=== PATIENT | female | born 1970 | race African-American/Black ===

== ENCOUNTER 2017-08-06 05:08 | Emergency (ER) | payer OTHER ==
[~2017-08-06] VITALS: Ht 154.9 cm; Wt 68.0 kg
[~2017-08-06 05:08] MED LIST: ANTIVERT25 MG PO; BREO ELLIPTA 11 EACH IH; CIPROFLOXACIN500 M1 PO; CIPROFLOXACIN500 M3 PO; FLOMAX PO; FLOMAX0.4 MG PO; HYDROCHLOROTH12.5 M2 PO; HYDROCHLOROTHIA25 M1 PO; LISINOPRIL20 MG PO; MECLIZINE HCL25 M1 PO; NAPROSYN500 MG PO; NORCO 5-325 TA1 EACH PO; NORFLEX100 MG PO; PERCOCET 5-3251 EACH PO; PHENERGAN 25 MG25 M1 PO; PREDNISONE 10 M10 M1 PO; PROVENTIL IH; PYRIDIUM200 MG PO; QUINAPRIL 20 MG20 MG PO; TAMSULOSIN HCL0.4 M1 PO; ZESTORETIC 20-1 EAC3 PO; ZESTORETIC 20-1 EACH PO; ZESTRIL20 MG PO; ZOFRAN 4 MG ORAL4 M1 DIS; ZOFRAN ODT4 MG PO
[2017-08-06] MEDS ORDERED: OXYCODONE HCL 55 MG PO (06:37)
== END 2017-08-06 06:53 | disposition home or self-care (01) ==
LOC: ER 05:08
DX: S02.609A Fracture of mandible, unspecified, initial encounter for closed fracture (principal); Y04.8XXA Assault by other bodily force, initial encounter; Y93.89 Activity, other specified; Y92.89 Other specified places as the place of occurrence of the external cause; Y99.8 Other external cause status; I10 Essential (primary) hypertension; J45.909 Unspecified asthma, uncomplicated; Z87.442 Personal history of urinary calculi

== ENCOUNTER 2017-08-09 19:18 | Emergency (ER) | payer OTHER ==
[~2017-08-09] VITALS: Ht 154.9 cm; Wt 68.0 kg
[~2017-08-09 19:18] MED LIST changes: +OXYCODONE HCL 55 MG PO
[2017-08-09] MEDS ORDERED: CYCLOGYL2 M1 OPHTHALMIC (21:59)
[2017-08-09] MEDS ORDERED: PRED FORTE 1% EY5 M1 OPHTHALMIC (21:59)
== END 2017-08-09 22:05 | disposition home or self-care (01) ==
LOC: ER 19:18
DX: H20.9 Unspecified iridocyclitis (principal); I10 Essential (primary) hypertension; J45.909 Unspecified asthma, uncomplicated; Z87.442 Personal history of urinary calculi

== ENCOUNTER 2017-08-17 14:07 | Emergency (ER) | payer OTHER ==
[~2017-08-17] VITALS: Ht 154.9 cm; Wt 68.0 kg
[~2017-08-17 14:07] MED LIST changes: +CYCLOGYL2 M1 OPHTHALMIC; +PRED FORTE 1% EY5 M1 OPHTHALMIC
[2017-08-17] MEDS ORDERED: OXYCODONE HCL 55 MG PO (14:40)
== END 2017-08-17 14:45 | disposition home or self-care (01) ==
LOC: ER 14:07
DX: Z76.0 Encounter for issue of repeat prescription (principal); I10 Essential (primary) hypertension; J45.909 Unspecified asthma, uncomplicated

== ENCOUNTER 2018-04-28 11:53 | Emergency (ER) | payer OTHER ==
[~2018-04-28] VITALS: Ht 154.9 cm; Wt 65.8 kg
[2018-04-28] MEDS ORDERED: HYDROCHLOROTHIA25 M1 PO (11:56)
[2018-04-28] MEDS ORDERED: PENICILLIN V P500 MG PO (12:31)
[2018-04-28] MEDS ORDERED: TRAMADOL 50 MG50 MG PO (12:31)
[2018-04-28] MEDS ORDERED: IBUPROFEN 400400 M2 PO (12:31)
[2018-04-28 13:52] VITALS: BP 184/114
== END 2018-04-28 13:10 | disposition home or self-care (01) ==
LOC: ER 11:53
DX: K04.01 Reversible pulpitis (principal); I10 Essential (primary) hypertension; J45.909 Unspecified asthma, uncomplicated

== ENCOUNTER 2018-06-24 19:46 | Emergency (ER) | payer OTHER ==
[~2018-06-24] VITALS: Ht 154.9 cm; Wt 70.3 kg
[~2018-06-24 19:46] MED LIST changes: +IBUPROFEN 400400 M2 PO; +PENICILLIN V P500 MG PO; +TRAMADOL 50 MG50 MG PO
[2018-06-24] MEDS ORDERED: AMOXICILLIN 50500 MG PO (20:04)
[2018-06-24] MEDS ORDERED: NORCO 7.5-3251 EACH PO (20:04)
[2018-06-24 21:12] VITALS: BP 176/103
== END 2018-06-24 21:14 | disposition home or self-care (01) ==
LOC: ER 19:46
DX: S02.5XXA Fracture of tooth (traumatic), initial encounter for closed fracture (principal); I10 Essential (primary) hypertension; J45.909 Unspecified asthma, uncomplicated; Z87.442 Personal history of urinary calculi; X58.XXXA Exposure to other specified factors, initial encounter; Y92.89 Other specified places as the place of occurrence of the external cause; Y93.89 Activity, other specified; Y99.8 Other external cause status

== ENCOUNTER 2018-06-26 16:56 | Emergency (ER) | payer OTHER ==
[~2018-06-26] VITALS: Ht 154.9 cm; Wt 70.3 kg
[~2018-06-26 16:56] MED LIST changes: +AMOXICILLIN 50500 MG PO; +NORCO 7.5-3251 EACH PO
[2018-06-26 17:47] VITALS: BP 184/103
== END 2018-06-26 17:48 | disposition home or self-care (01) ==
LOC: ER 16:56
DX: K08.89 Other specified disorders of teeth and supporting structures (principal); R68.84 Jaw pain; I10 Essential (primary) hypertension; J45.909 Unspecified asthma, uncomplicated

== ENCOUNTER 2018-12-03 13:33 | Emergency (ER) | payer OTHER ==
[~2018-12-03] VITALS: Ht 157.5 cm; Wt 72.6 kg
[2018-12-03] MEDS ORDERED: ZESTORETIC 20-1 EAC3 PO (13:43)
[2018-12-03] MEDS ORDERED: NAPROSYN500 MG PO (14:49)
[2018-12-03] MEDS ORDERED: MOBIC7.5 MG PO (14:50)
[2018-12-03] MEDS ORDERED: FLEXERIL PO (14:51)
[2018-12-03] MEDS ORDERED: BUTALB-APAP-CA1 EACH PO (15:13)
[2018-12-03 15:25] VITALS: BP 141/83
== END 2018-12-03 15:31 | disposition home or self-care (01) ==
LOC: ER 13:33
DX: F41.8 Other specified anxiety disorders (principal); R51 Headache; I10 Essential (primary) hypertension; J45.909 Unspecified asthma, uncomplicated; Z98.51 Tubal ligation status

== ENCOUNTER 2018-12-18 00:10 | Emergency (ER) | payer OTHER ==
[~2018-12-18] VITALS: Ht 154.9 cm; Wt 72.6 kg
[~2018-12-18 00:10] MED LIST changes: +BUTALB-APAP-CA1 EACH PO; +FLEXERIL PO; +MOBIC7.5 MG PO
[2018-12-18] MEDS ORDERED: PREDNISONE 20 M20 MG PO (00:27)
[2018-12-18] MEDS ORDERED: IBUPROFEN 600600 M1 PO (00:27)
[2018-12-18] MEDS ORDERED: HYDROCHLOROTHIA25 M2 PO (00:28)
[2018-12-18] MEDS ORDERED: LISINOPRIL20 MG PO (00:28)
[2018-12-18 02:34] VITALS: BP 125/72
[2018-12-18] MEDS ORDERED: COMPAZINE10 MG PO (03:09)
== END 2018-12-18 03:20 | disposition home or self-care (01) ==
LOC: ER 00:10
DX: I10 Essential (primary) hypertension (principal); R51 Headache; J45.909 Unspecified asthma, uncomplicated; Z87.442 Personal history of urinary calculi

== ENCOUNTER 2019-06-14 10:16 | Emergency (ER) | payer OTHER ==
[~2019-06-14] VITALS: Ht 154.9 cm; Wt 74.8 kg
[~2019-06-14 10:16] MED LIST changes: +COMPAZINE10 MG PO; +HYDROCHLOROTHIA25 M2 PO; +IBUPROFEN 600600 M1 PO; +PREDNISONE 20 M20 MG PO
[2019-06-14] MEDS ORDERED: NAPROSYN500 MG PO (12:08)
[2019-06-14 12:53] VITALS: BP 126/82
== END 2019-06-14 12:53 | disposition home or self-care (01) ==
LOC: ER 10:16
DX: S93.691A Other sprain of right foot, initial encounter (principal); I10 Essential (primary) hypertension; J45.909 Unspecified asthma, uncomplicated; Z98.51 Tubal ligation status; Z87.442 Personal history of urinary calculi; W18.39XA Other fall on same level, initial encounter; Y93.K1 Activity, walking an animal; Y92.89 Other specified places as the place of occurrence of the external cause; Y99.8 Other external cause status

== ENCOUNTER 2020-03-29 21:02 | Emergency (ER) | payer OTHER ==
[~2020-03-29] VITALS: Ht 154.9 cm; Wt 74.8 kg
[2020-03-29] MEDS ORDERED: ZESTRIL40 MG PO (21:16)
[2020-03-29] MEDS ORDERED: NORFLEX100 MG PO (22:36)
[2020-03-29] MEDS ORDERED: NAPROSYN500 MG PO (22:36)
[2020-03-29] MEDS ORDERED: TRAMADOL 50 MG50 MG PO (22:36)
[2020-03-29 23:01] VITALS: BP 154/91
== END 2020-03-29 23:05 | disposition home or self-care (01) ==
LOC: ER 21:02
DX: M43.6 Torticollis (principal); M62.830 Muscle spasm of back; I10 Essential (primary) hypertension; J45.909 Unspecified asthma, uncomplicated; Z98.51 Tubal ligation status; Z87.442 Personal history of urinary calculi

== ENCOUNTER 2020-05-11 16:27 | Inpatient (IN) | payer MEDICAID ==
[~2020-05-11] VITALS: Ht 157.5 cm; Wt 79.8 kg
[~2020-05-11 16:27] MED LIST changes: +ZESTRIL40 MG PO
[2020-05-11 16:28] VITALS: BP 180/105
[2020-05-11] MEDS ORDERED: PROAIR HFA8.5 GM INH (16:57)
[2020-05-11 18:03] LABS: HEMATOCRIT 39.7 % (37.0-47.0); HEMOGLOBIN 13.5 gm/dL (12.0-15.0); MCH 31.8 pg (26.0-34.0); MCV 93.6 fL (80.0-100.0); PLATELET COUNT 296 thou/uL (150-400); RBC 4.24 mil/uL (4.20-5.00); RDW 13.3 % (10.5-14.5); WBC 10.2 thou/uL (4.0-11.0)
[2020-05-11 18:11] LABS: ANION GAP 9 mmol/L (7-16); BUN 10 mg/dL (7-18); CALCIUM 9.4 mg/dL (8.5-10.1); CHLORIDE 108 mmol/L (98-107); CO2 27 mmol/L (21-32); CREATININE 0.8 mg/dL (0.6-1.0); GLUCOSE 122 mg/dL (74-106); POTASSIUM 3.5 mmol/L (3.5-5.1); SODIUM 144 mmol/L (136-145)
[2020-05-11 18:21] LABS: ALBUMIN 4.1 g/dL (3.4-5.0); SGOT 18 U/L (15-37); SGPT 18 U/L (30-65); TOTAL BILIRUBIN 0.2 mg/dL (0.2-1.0); TOTAL PROTEIN 7.6 g/dL (6.4-8.2); TROPONIN-I <0.06 ng/mL (<0.06)
[2020-05-11 18:42] LABS: ABSOLUTE NEUTROPHILS 8.3 thou/uL (1.4-8.2)
[2020-05-11 23:56] VITALS: BP 187/101
[2020-05-12] VITALS (10 sets, daily range): BP systolic 151–203; BP diastolic 81–125
--- NOTE | 2020-05-12 05:40 | NUR ---
RECIEVED PT FROM ED, UPON ARRIVAL TO UNIT TO CALM COOPERATIVE, PLACED ON PROGRESSIVE DIE MAKER SHOWS [address] 109 BP ELEVATED, DENIES PAIN, DICUSSED PLAN OF CARE, VERBALIZED UNDERSTANDING AND AGREEABLE . PO MEDICATION GIVEN FOR ELEVATED BP , BP DECREASED DOWN TO 151/81 WILL CONINTUE TO MONITOR.
[2020-05-12 06:48] LABS: HEMATOCRIT 38.8 % (37.0-47.0); HEMOGLOBIN 12.8 gm/dL (12.0-15.0); MCH 31.5 pg (26.0-34.0); MCHC 33.1 g/dL (28.0-37.0); MCV 95.1 fL (80.0-100.0); RBC 4.08 mil/uL (4.20-5.00); RDW 14.2 % (10.5-14.5); WBC 10.7 thou/uL (4.0-11.0)
[2020-05-12 07:03] LABS: CALCIUM 9.2 mg/dL (8.5-10.1); CREATININE 0.8 mg/dL (0.6-1.0); MAGNESIUM 1.8 mg/dL (1.8-2.4); POTASSIUM 4.1 mmol/L (3.5-5.1)
--- NOTE | 2020-05-12 07:42 | EKG ---
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: 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 : 1970 Requested By: Camden Capps Order Number: [id number] MD: Ferny Hickman Measurements Intervals [place] Rate: 137 P: 0 [place]: QRS: -52 QRSD: 131 T: 88 QT: 393 QTc: 594 Interpretive Statements Sinus tachycardia Left bundle branch block Compared to ECG 07/15/2011 05:19:18 Left bundle-branch block now present Sinus rhythm no longer present Electronically Signed On 05-12-2020 7:42:11 CDT by Ferny Hickman [email or web address] <ELECTRONICALLY SIGNED> By: Ferny Hickman MD, FACC 05/12/20 0742 1755 175 Ferny Hickman MD, [facility] /EPI
--- NOTE | 2020-05-12 15:58 | NUR ---
INITIAL ASSESSMENT: LEW reviewed chart and spoke with nursing and attending physician. Pt was admitted from home due to pneumonia. Pt placed in Enhanced Isolation to r/o COVID-19. Pt's test is negative. Enhanced Isolation precautions have been discontinued. Pt with hx of asthma. Pt is did have a fever and is on IV steroids. Pt's BP elevated. Pt is not requiring O2. LEW spoke with pt via phone. Introduced role of SW. Pt is alert/orientated x 4 and reports she lives at home with family. Prior to admission, pt was independent with ADLs. No use of DME. 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 Pt states she goes to [facility] for primary care. Pt does not have health insurance and reports that Med Assist was in her room earlier today to assist with financial application. Pt states she has an inhaler at home, but would like a nebulizer for breathing treatments. Pt is currently on Albuterol breathing treatments every 4 hours. LEW contacted Director of Case Mgmt who approved vouching for nebulizer and meds. LEW contacted [facility] liaison, who states they are able to provide the nebulizer for $100. They are not able to provide the medication. LEW contacted [facility] to see if they are able to provide both the nebulizer and medication. LEW is following to assist as needed with discharge planning.
--- NOTE | 2020-05-12 18:11 | NUR ---
PT ARRIVED TO UNIT FROM 3W AT APPROX 1730 BY 3W NURSING STAFF. PT ALERT AND ORIENTED. BP REMAINS HIGH, PT RELUCTANT IN TAKING BLOOD PRESSURE MEDS DUE TO SIDE EFFECTS THAT PATIENT SEARCHED ON GOOGLE. NURSE TELLS PT PHYSICIAN CAN BE CONTACTED FOR ADDITIONAL MEDS TO HELP WITH BP. PT FURTHER EDUCATED ON IMPORTANCE OF MANAGED BP. DENIES SOB. PT CURRENTLY SITTING UP IN CHAIR DENYING OF NEEDS. WILL CONT TO MONITOR .WILL PASS ON REPORT TO BELLE RN.
[2020-05-13 05:00] VITALS: BP 138/82
--- NOTE | 2020-05-13 06:34 | NUR ---
PATIENT IS PROGRESSING IN HER CARE PLAN. VITAL SIGNS STABLE WITH PATIENT HAVING NO COMPLAINTS OF PAIN OR NAUSEA. FULLY ORIENTED, PATIENT IS ABLE TO CALL APPROPRIATELY FOR NEEDS AND CAN FULLY PARTICIPATE IN CARE. BREATHING STABLE ON ROOM AIR EVIDENCED BY ASSESSMENTS AND SPOT OXYGENATION CHECKS. UP AD MARLENA THROUGHOUT SHIFT INCIDENT FREE. PATIENT IS ANXIOUS FOR POTENTIAL DISCHARGE TODAY. CONTINUE PLAN OF CARE.
[2020-05-13 08:53] VITALS: BP 179/105
[2020-05-13 12:30] VITALS: BP 179/91
[2020-05-13 14:22] VITALS: BP 147/85
[2020-05-13] MEDS ORDERED: NORVASC10 MG PO (14:24)
[2020-05-13] MEDS ORDERED: PREDNISONE 10 M10 MG PO (14:24)
[2020-05-13] MEDS ORDERED: ALBUTEROL2.5 MG/0.1 INH (14:36)
[2020-05-13 14:48] VITALS: BP 147/85
[2020-05-13] MEDS ORDERED: WORK EXCUSE (15:59)
--- NOTE | 2020-05-13 16:35 | NUR ---
ASSUMED CARE AT CHANGE OF SHIFT. ALERT X4 FROM HOME. SOB MANAGED WITH BREATHING TREATMENTS. PT'S BP ELEVATED REFUSED SCHEDULED HYDRALAZINE VOICED ADVERSE REACTIONS. DR MATA NOTIFIED NEW ORDERS PLACED. BP ARE WITHIN NORMAL LIMITS AND PT DC HOME WITH SELF CARE. MEDICATIONS AND NEBULIZER PROVIDED. ALL BELONINGS SENT WITH PATIENT. REVIEWED DC PAPER WORK AND EDCUATED TO FOLLLOW UP WITH PULMONARY PHYSICIAN AND PCP.
--- NOTE | 2020-05-13 17:16 | NUR ---
Patient to ar home. Vouched for nebulizer machine and medications. Medication cost $41.48. Gave information for health clinics but patient reports she is established with [facility] clinic currently. No further needs
== END 2020-05-13 17:41 | disposition home or self-care (01) | DRG 194 ==
LOC: ER 16:27 → 2N 21:05 → EROBS 21:05 → 3W 05-12 00:13 → 2N 05-12 17:40
PROVIDERS: Emergency Medicine; Nurse Practitioner Family; ADMIT Internal Medicine; ATTEND Internal Medicine
DX: J18.9 Pneumonia, unspecified organism (principal); J45.901 Unspecified asthma with (acute) exacerbation; J98.11 Atelectasis; I10 Essential (primary) hypertension; Z20.828 Contact with and (suspected) exposure to other viral communicable diseases; Z87.442 Personal history of urinary calculi; Z82.49 Family history of ischemic heart disease and other diseases of the circulatory system; Z79.899 Other long term (current) drug therapy
CPT/HCPCS: 10081

== ENCOUNTER 2020-12-08 05:40 | Emergency (ER) | payer OTHER ==
[~2020-12-08] VITALS: Ht 154.9 cm; Wt 78.9 kg
[~2020-12-08 05:40] MED LIST changes: +ALBUTEROL2.5 MG/0.1 INH; +NORVASC10 MG PO; +PREDNISONE 10 M10 MG PO; +PROAIR HFA8.5 GM INH; +WORK EXCUSE
[2020-12-08 06:03] LABS: URINE BILIRUBIN NEGATIVE (Negative); URINE BLOOD NEGATIVE (Negative); URINE CLARITY CLEAR; URINE COLOR YELLOW; URINE GLUCOSE-RANDOM* NEGATIVE (Negative); URINE KETONES NEGATIVE (Negative); URINE LEUKOCYTES-REFLEX NEGATIVE (Negative); URINE NITRITE-REFLEX NEGATIVE (Negative); URINE PROTEIN (DIPSTICK) NEGATIVE (Negative); URINE SPECIFIC GRAVITY 1.025 (1.005-1.035)
[2020-12-08] MEDS ORDERED: BRIDION200 MG/2 M INH (06:16)
[2020-12-08 06:22] LABS: ABSOLUTE NEUTROPHILS 6.6 thou/uL (1.4-8.2); BASOPHILS 0.8 % (0.0-2.0); EOSINOPHILS 1.4 % (0.0-3.0); HEMATOCRIT 42.3 % (37.0-47.0); HEMOGLOBIN 13.6 gm/dL (12.0-15.0); LYMPHOCYTES 26.9 % (24.0-44.0); MCH 30.5 pg (26.0-34.0); MCHC 32.2 g/dL (28.0-37.0); MCV 94.5 fL (80.0-100.0); MONOCYTES 5.9 % (1.0-8.0); PLATELET COUNT 303 thou/uL (150-400); RBC 4.48 mil/uL (4.20-5.00); WBC 10.2 thou/uL (4.0-11.0)
[2020-12-08 06:31] LABS: ANION GAP 7 mmol/L (7-16); BUN 9 mg/dL (7-18); CALCIUM 9.1 mg/dL (8.5-10.1); CHLORIDE 107 mmol/L (98-107); CO2 26 mmol/L (21-32); CREATININE 0.9 mg/dL (0.6-1.0); GLUCOSE 113 mg/dL (74-106); POTASSIUM 3.7 mmol/L (3.5-5.1); SODIUM 140 mmol/L (136-145)
[2020-12-08 06:41] LABS: ALBUMIN 3.5 g/dL (3.4-5.0); SGOT 10 U/L (15-37); SGPT 19 U/L (14-59); TOTAL BILIRUBIN 0.4 mg/dL (0.2-1.0); TOTAL PROTEIN 6.8 g/dL (6.4-8.2); TROPONIN-I <0.06 ng/mL (<0.06)
--- NOTE | 2020-12-08 06:42 | EKG ---
[place] [address] [facility] [place] [address] ELECTROCARDIOGRAM REPORT Name: AVE GEORGE [id number] Admission: 12/08/20 Attend Phys: Discharge: Date of : 68 Report #: [id number] [facility] ED Test Date: 2020-12-08 Test Time: 06:02:26 Pat Name: AVE GEORGE Department: Room: Gender: F Strategic Planning Consultant: tremayne : 1970 Requested By: Camden Capps Order Number: [id number] MD: Ferny Hickman Measurements Intervals [place] Rate: 74 P: 41 NM: 175 QRS: -46 QRSD: 138 T: 59 QT: 419 QTc: 465 Interpretive Statements Sinus rhythm Left bundle branch block Compared to ECG 05/11/2020 17:55:52 Sinus tachycardia no longer present Electronically Signed On 12-08-2020 6:42:50 CDT by Ferny Hickman [email or web address] <ELECTRONICALLY SIGNED> By: Ferny Hickman MD, [facility] 12/08/20 0642 0602 1 Ferny Hickman MD, FACC /EPI
[2020-12-08 10:30] VITALS: BP 172/101
== END 2020-12-08 10:31 | disposition still patient (30) ==
LOC: ER 05:40
PROVIDERS: Emergency Medicine
DX: R07.9 Chest pain, unspecified (principal); I10 Essential (primary) hypertension; J44.9 Chronic obstructive pulmonary disease, unspecified; Z79.899 Other long term (current) drug therapy

== ENCOUNTER 2021-05-19 03:10 | Emergency (ER) | payer OTHER ==
[~2021-05-19] VITALS: Ht 154.9 cm; Wt 70.3 kg
[~2021-05-19 03:10] MED LIST changes: +BRIDION200 MG/2 M INH
[2021-05-19 03:47] LABS: ABSOLUTE NEUTROPHILS 4.8 thou/uL (1.4-8.2); BASOPHILS 0.6 % (0.0-2.0); EOSINOPHILS 1.5 % (0.0-3.0); HEMATOCRIT 41.4 % (37.0-47.0); HEMOGLOBIN 13.8 gm/dL (12.0-15.0); LYMPHOCYTES 32.3 % (24.0-44.0); MCH 31.5 pg (26.0-34.0); MCHC 33.4 g/dL (28.0-37.0); MCV 94.2 fL (80.0-100.0); MONOCYTES 5.9 % (1.0-8.0); PLATELET COUNT 343 thou/uL (150-400); POLYS 59.7 % (36.0-66.0); RDW 13.8 % (10.5-14.5)
[2021-05-19 04:20] LABS: CALCIUM 9.8 mg/dL (8.5-10.1); CREATININE 0.8 mg/dL (0.6-1.0); POTASSIUM 4.2 mmol/L (3.5-5.1)
[2021-05-19 04:30] LABS: ALBUMIN 3.7 g/dL (3.4-5.0); TOTAL BILIRUBIN 0.2 mg/dL (0.2-1.0); TOTAL PROTEIN 7.4 g/dL (6.4-8.2)
[2021-05-19 05:28] LABS: URINE BILIRUBIN NEGATIVE (Negative); URINE BLOOD NEGATIVE (Negative); URINE CLARITY CLEAR; URINE COLOR YELLOW; URINE GLUCOSE-RANDOM* NEGATIVE (Negative); URINE KETONES NEGATIVE (Negative); URINE LEUKOCYTES-REFLEX NEGATIVE (Negative); URINE NITRITE-REFLEX NEGATIVE (Negative); URINE PROTEIN (DIPSTICK) NEGATIVE (Negative); URINE SPECIFIC GRAVITY >= 1.030 (1.005-1.035); URINE UROBILINOGEN 0.2 E.U./dl (0.2-1.0)
[2021-05-19] MEDS ORDERED: MECLIZINE HCL25 M1 PO (05:28)
[2021-05-19 05:54] VITALS: BP 136/86
--- NOTE | 2021-05-19 06:51 | EKG ---
[address] [address] ELECTROCARDIOGRAM REPORT Name: AVE GEORGE Room #: REG [facility]#: [id number] Admission: 05/19/21 Attend Phys: Discharge: Date of : 68 Report #: [id number] [facility] ED Test Date: 2021-05-19 Test Time: 03:31:51 Pat Name: AVE GEORGE Department: Room: Gender: F Set Designer: josefina : 1970 Requested By: Glynn Varela Order Number: [id number] MD: Ferny Hickman Measurements Intervals [place] Rate: 72 P: 56 [place]: 174 QRS: 96 QRSD: 137 T: -25 QT: 421 QTc: 461 Interpretive Statements Sinus rhythm LBBB Compared to ECG 12/08/2020 06:02:26 No significant change Electronically Signed On 05-19-2021 6:51:13 CDT by Ferny Hickman [email or web address] <ELECTRONICALLY SIGNED> By: Ferny Hickman MD, [facility] 05/19/21 0651 0331 0331 Ferny Hickman MD, FACC /EPI
--- NOTE | 2021-05-20 07:22 | EKG ---
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 Thinner: juan carlos : 1970 Requested By: Glynn Varela Order Number: [id number] MD: Ferny Hickman Measurements Intervals [place] Rate: 67 P: 52 [place]: 188 QRS: -42 QRSD: 137 T: 52 QT: 438 QTc: 463 Interpretive Statements Sinus rhythm Left bundle branch block Compared to ECG 05/19/2021 03:31:51 No significant changes Electronically Signed On 05-20-2021 7:22:02 CDT by Ferny Hickman [email or web address] <ELECTRONICALLY SIGNED> By: Ferny Hickman MD, [facility] 05/20/21 0722 0413 0413 Ferny Hickman MD, FACC /EPI
== END 2021-05-19 05:54 | disposition home or self-care (01) ==
LOC: ER 03:10
PROVIDERS: Emergency Medicine
DX: R42 Dizziness and giddiness (principal); I10 Essential (primary) hypertension; J45.909 Unspecified asthma, uncomplicated; F41.9 Anxiety disorder, unspecified; J44.9 Chronic obstructive pulmonary disease, unspecified; M19.90 Unspecified osteoarthritis, unspecified site; Z87.442 Personal history of urinary calculi; Z98.890 Other specified postprocedural states; Z79.51 Long term (current) use of inhaled steroids; Z79.899 Other long term (current) drug therapy

== ENCOUNTER 2021-06-30 16:13 | Emergency (ER) | payer OTHER ==
[~2021-06-30] VITALS: Ht 154.9 cm; Wt 74.8 kg
[2021-06-30] MEDS ORDERED: HYDROCHLOROTH12.5 M1 PO (16:32)
[2021-06-30] MEDS ORDERED: PRINIVIL40 MG PO (16:32)
[2021-06-30] MEDS ORDERED: TAMSULOSIN HCL0.4 MG PO (16:33)
[2021-06-30] MEDS ORDERED: FAMOTIDINE40 MG PO (16:33)
[2021-06-30 16:55] LABS: ABSOLUTE NEUTROPHILS 4.4 thou/uL (1.4-8.2); BASOPHILS 0.8 % (0.0-2.0); EOSINOPHILS 2.1 % (0.0-3.0); HEMOGLOBIN 13.4 gm/dL (12.0-15.0); LYMPHOCYTES 28.8 % (24.0-44.0); MCH 31.5 pg (26.0-34.0); MCHC 33.4 g/dL (28.0-37.0); MCV 94.3 fL (80.0-100.0); MONOCYTES 5.5 % (1.0-8.0); PLATELET COUNT 314 thou/uL (150-400); POLYS 62.8 % (36.0-66.0); RBC 4.24 mil/uL (4.20-5.00); RDW 13.8 % (10.5-14.5)
[2021-06-30 16:59] LABS: CREATININE 0.8 mg/dL (0.6-1.0); POTASSIUM 4.5 mmol/L (3.5-5.1)
[2021-06-30 17:13] LABS: ALBUMIN 3.6 g/dL (3.4-5.0); TOTAL BILIRUBIN 0.4 mg/dL (0.2-1.0); TOTAL PROTEIN 7.2 g/dL (6.4-8.2)
[2021-06-30 18:02] LABS: AMP/METHAMP Negative (Negative); BARBITURATES Negative (Negative); BENZODIAZEPINES Negative (Negative); COCAINE Negative (Negative); METHADONE Negative (Negative); OPIATES Negative (Negative); PCP Negative (Negative)
[2021-06-30 18:33] VITALS: BP 166/83
--- NOTE | 2021-07-01 10:16 | EKG ---
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: TANYA : 1970 Requested By: Gail Larry Order Number: [id number] MD: Vidal Mcmanus Measurements Intervals [place] Rate: 115 P: 25 [place]: 157 QRS: -57 QRSD: 136 T: 94 QT: 344 QTc: 476 Interpretive Statements Sinus tachycardia Probable left atrial enlargement Left bundle branch block Compared to ECG 05/19/2021 04:13:12 Sinus rhythm no longer present Electronically Signed On 07-01-2021 10:16:14 [employer] by Vidal Mcmanus [email or web address] <ELECTRONICALLY SIGNED> By: Vidal Mcmanus MD 07/01/21 1016 1622 1622 Vidal Mcmanus MD /RUBEN
== END 2021-06-30 18:34 | disposition home or self-care (01) ==
LOC: ER 16:13
PROVIDERS: Physician Assistant
DX: R07.89 Other chest pain (principal); T40.725A Adverse effect of synthetic cannabinoids, initial encounter; I10 Essential (primary) hypertension; F41.9 Anxiety disorder, unspecified; J44.9 Chronic obstructive pulmonary disease, unspecified; M19.90 Unspecified osteoarthritis, unspecified site; E66.01 Morbid (severe) obesity due to excess calories; Z68.31 Body mass index [BMI] 31.0-31.9, adult; Z87.442 Personal history of urinary calculi; Z79.899 Other long term (current) drug therapy; Y92.89 Other specified places as the place of occurrence of the external cause

== ENCOUNTER 2021-07-03 20:30 | Emergency (ER) | payer OTHER ==
[~2021-07-03] VITALS: Ht 154.9 cm; Wt 74.8 kg
[~2021-07-03 20:30] MED LIST changes: +FAMOTIDINE40 MG PO; +HYDROCHLOROTH12.5 M1 PO; +PRINIVIL40 MG PO; +TAMSULOSIN HCL0.4 MG PO
[2021-07-03] MEDS ORDERED: LIPITOR 40 MG T40 M1 PO (21:12)
[2021-07-03 21:21] LABS: ABSOLUTE NEUTROPHILS 5.9 thou/uL (1.4-8.2); BASOPHILS 0.8 % (0.0-2.0); HEMATOCRIT 42.6 % (37.0-47.0); HEMOGLOBIN 13.8 gm/dL (12.0-15.0); LYMPHOCYTES 25.8 % (24.0-44.0); MCH 30.5 pg (26.0-34.0); MCHC 32.4 g/dL (28.0-37.0); MCV 94.3 fL (80.0-100.0); PLATELET COUNT 340 thou/uL (150-400); POLYS 66.4 % (36.0-66.0); RBC 4.52 mil/uL (4.20-5.00); RDW 13.6 % (10.5-14.5)
[2021-07-03 21:27] LABS: CALCIUM 10.5 mg/dL (8.5-10.1); CREATININE 0.7 mg/dL (0.6-1.0); POTASSIUM 3.4 mmol/L (3.5-5.1)
[2021-07-03 23:34] VITALS: BP 149/93
--- NOTE | 2021-07-04 10:31 | EKG ---
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: GAYE : 1970 Requested By: Nicola Chan Order Number: [id number] MD: Vidal Mcmanus Measurements Intervals [place] Rate: 81 P: 41 [place]: 183 QRS: -49 QRSD: 142 T: 70 QT: 411 QTc: 477 Interpretive Statements Sinus rhythm Left atrial enlargement Left bundle branch block Compared to ECG 06/30/2021 16:22:00 Sinus tachycardia no longer present Electronically Signed On 07-04-2021 10:30:46 LABEL CUTTER by Vidal Mcmanus [email or web address] <ELECTRONICALLY SIGNED> By: Vidal Mcmanus MD 07/04/21 1030 36 2037 Vidal Mcmanus MD /RUBEN
== END 2021-07-03 23:35 | disposition home or self-care (01) ==
LOC: ER 20:30
PROVIDERS: Nurse Practitioner
DX: R07.89 Other chest pain (principal); I10 Essential (primary) hypertension; J45.909 Unspecified asthma, uncomplicated; J44.9 Chronic obstructive pulmonary disease, unspecified; M19.90 Unspecified osteoarthritis, unspecified site; E66.01 Morbid (severe) obesity due to excess calories; F12.90 Cannabis use, unspecified, uncomplicated; Z79.899 Other long term (current) drug therapy; Z98.51 Tubal ligation status; Z87.442 Personal history of urinary calculi

== ENCOUNTER 2021-08-06 04:38 | Emergency (ER) | payer OTHER ==
[~2021-08-06] VITALS: Ht 154.9 cm; Wt 78.0 kg
[~2021-08-06 04:38] MED LIST changes: +LIPITOR 40 MG T40 M1 PO
[2021-08-06 08:49] VITALS: BP 00/00
== END 2021-08-06 07:17 | disposition home or self-care (01) ==
LOC: ER 04:38
DX: M25.511 Pain in right shoulder (principal); J44.9 Chronic obstructive pulmonary disease, unspecified; F41.9 Anxiety disorder, unspecified; I10 Essential (primary) hypertension; M19.90 Unspecified osteoarthritis, unspecified site; E66.01 Morbid (severe) obesity due to excess calories; Z98.51 Tubal ligation status; Z79.899 Other long term (current) drug therapy